=== PATIENT | female | born 1980 | race American Indian/Alaskan Native ===

== ENCOUNTER 2020-09-17 01:07 | Emergency (ER) | payer OTHER ==
[2020-09-17 02:29] VITALS: BP 102/68
[2020-09-17] MEDS ORDERED: IBUPROFEN 600 MG TAB PO ONE (02:38)
[2020-09-17] MEDS ORDERED: predniSONE 20 MG TAB PO ONE (02:38)
[2020-09-17] MEDS ORDERED: BUTALB/ACETAMINOPHEN/CAFFEINE TAB PO ONE (02:38)
[2020-09-17] MEDS ORDERED: HYDROcodone/ACETAMINOPHEN 5-325 MG TAB PO ONE (02:39)
[2020-09-17] MEDS ORDERED: ONDANSETRON 4 MG ODT TAB PO ONE (02:39)
--- NOTE | 2020-09-17 03:21 | XRay Report ---
CHEST 2 VIEWS INDICATION / CLINICAL INFORMATION: COUGH. COMPARISON: None available. FINDINGS: SUPPORT DEVICES: None. HEART / MEDIASTINUM: No significant abnormality. LUNGS / PLEURA: No significant pulmonary or pleural abnormality. No pneumothorax. ADDITIONAL FINDINGS: No significant additional findings. IMPRESSION: 1. No acute findings. Signer Name: Charan Calderon MD Signed: 09/17/2020 3:17 AM Workstation Name: [id number]
[2020-09-17 03:26] LABS: Bilirubin,Urine NEG (Negative); Blood,Urine NEG (Negative); Color,Urine Yellow (Yellow); Mucus,Urine 1+ /HPF; Protein,Urine <15 mg/dL mg/dL (Negative); Urobilinogen,Urine < 2.0 mg/dL (<2.0)
--- NOTE | 2020-09-17 04:24 | Emergency Department Report ---
ED Back Pain/Injury HPI - General Chief Complaint: Back Pain/Injury Stated Complaint: BACK PAIN,HEADACHE,PIERRE Source: patient Limitations: No Limitations - History of Present Illness Initial Comments: Patient is a 40-year-old -[place] female with no past medical history presents to the ED with complaint of acute onset persistent nontraumatic left lower back pain, bitemporal headache and persistent dry cough for the last 7 days. Patient states that the cough is dry and that each time she coughs she gets pleuritic chest pain. Patient states that she has been taking [id number] medications with no relief. Patient denies nasal and sinus congestion, dizziness, syncope, chest pain, shortness of breath, abdominal pain, nausea and vomiting, diarrhea, dysuria, urinary frequency and urgency, change in vision or sore throat. MD Complaint: back pain (Left low back pain), other (Persistent dry cough and headache) -: Sudden, week(s) (1) Similar Symptoms Previously: No Place: home Radiation: none Severity: severe Severity scale (0 -10): 7 Quality: sharp, aching Consistency: constant Improves With: none Worsens With: none, movement, walking, deep breaths/cough Context: unknown Associated Symptoms: denies other symptoms, cough. denies: confusion, weakness, chest pain, numbness, difficulty walking, difficulty urinating, diaphoresis, incontinence, fever/chills, constipation, headaches, abdominal pain, loss of appetite, malaise, nausea/vomiting, rash, seizure, shortness of breath, syncope, other Treatments Prior to Arrival: acetaminophen - Related Data Previous Rx's Medication Instructions Recorded Last Taken Type Baclofen 20 mg PO Q12H PRN #24 tablet 09/17/20 Unknown Rx Benzonatate [Tessalon Perles] 100 mg PO Q8HR #30 capsule 09/17/20 Unknown Rx Butalb/Acetamin/Caff 50-325-40 1 - 2 tab PO Q6HR PRN #15 tab 09/17/20 Unknown Rx [Fioricet 50-325-40] Naproxen 500 mg PO Q12H PRN #30 tablet 09/17/20 Unknown Rx predniSONE [Deltasone] 40 mg PO QDAY #10 tab 09/17/20 Unknown Rx Allergies Allergy/AdvReac Type Severity Reaction Status Date / Time No Known Allergies Allergy Verified 09/17/20 04:00 ED Review of Systems ROS: Stated complaint: BACK PAIN,HEADACHE,PIERRE Other details as noted in HPI Constitutional: denies: chills, fever Eyes: denies: eye pain, eye discharge, vision change ENT: other (Bitemporal headache). denies: ear pain, throat pain Respiratory: cough (Dry cough). denies: shortness of breath, wheezing Cardiovascular: denies: chest pain, palpitations Endocrine: no symptoms reported Gastrointestinal: denies: abdominal pain, nausea, diarrhea Genitourinary: denies: urgency, dysuria, discharge Musculoskeletal: back pain (Low back pain). denies: joint swelling, arthralgia Skin: denies: rash, lesions Neurological: denies: headache, weakness, paresthesias Psychiatric: denies: anxiety, depression Hematological/Lymphatic: denies: easy bleeding, easy bruising ED Past Medical Hx - Past Medical History Previous Medical History?: No - Surgical History Past Surgical History?: Yes Additional Surgical History: partial hysterectomy 2014 - Social History Smoking Status: Never Smoker Substance Use Type: None - Medications Home Medications: Home Medications Medication Instructions Recorded Confirmed Last Taken Type Baclofen 20 mg PO Q12H PRN #24 tablet 09/17/20 Unknown Rx Benzonatate [Tessalon Perles] 100 mg PO Q8HR #30 capsule 09/17/20 Unknown Rx Butalb/Acetamin/Caff 50-325-40 1 - 2 tab PO Q6HR PRN #15 tab 09/17/20 Unknown Rx [Fioricet 50-325-40] Naproxen 500 mg PO Q12H PRN #30 tablet 09/17/20 Unknown Rx predniSONE [Deltasone] 40 mg PO QDAY #10 tab 09/17/20 Unknown Rx ED Physical Exam - General Limitations: No Limitations General appearance: alert, in no apparent distress - Head Head exam: Present: atraumatic, normocephalic, normal inspection - Eye Eye exam: Present: normal appearance, PERRL, EOMI Pupils: Present: normal accommodation - ENT ENT exam: Present: normal exam, normal orophraynx, mucous membranes moist, TM's normal bilaterally, normal external ear exam - Neck Neck exam: Present: normal inspection, full ROM - Respiratory Respiratory exam: Present: normal lung sounds bilaterally. Absent: respiratory distress, wheezes, rales, rhonchi, chest wall tenderness, accessory muscle use, decreased breath sounds, prolonged expiratory - Cardiovascular Cardiovascular Exam: Present: regular rate, normal rhythm, normal heart sounds. Absent: systolic murmur, diastolic murmur, rubs, gallop - GI/Abdominal GI/Abdominal exam: Present: soft, normal bowel sounds. Absent: tenderness, guarding, rebound, hyperactive bowel sounds, hypoactive bowel sounds - Extremities Exam Extremities exam: Present: normal inspection, full ROM, normal capillary refill. Absent: tenderness, calf tenderness - Back Exam Back exam: Present: normal inspection, full ROM, tenderness (Palpable lumbosacral paraspinal musculoskeletal tenderness), muscle spasm, paraspinal tenderness. Absent: CVA tenderness (R), CVA tenderness (L), vertebral tenderness, rash noted - Neurological Exam Neurological exam: Present: alert, oriented X3, CN II-XII intact, normal gait, reflexes normal - Psychiatric Psychiatric exam: Present: normal affect, normal mood - Skin Skin exam: Present: warm, dry, intact, normal color. Absent: rash ED Course Vital Signs 09/17/20 02:21 Temperature 98.2 F Pulse Rate 77 Respiratory 18 Rate Blood Pressure 102/68 O2 Sat by Pulse 100 Oximetry ED Medical Decision Making - Radiology Data Radiology results: report reviewed, [place] [address] XRay Report Signed Patient: MARIANNE LAU MR#: [id number] : 1980 Acct:[id number] Age/Sex: 40 / F ADM Date: 09/17/20 Loc: ED Attending Dr: Ordering Physician: RENETTA GRANADOS Date of Service: 09/17/20 Procedure(s): XR chest routine 2V Accession Number(s): [id number] cc: RENETTA GRANADOS Fluoro Time In Minutes: CHEST 2 VIEWS INDICATION / CLINICAL INFORMATION: COUGH. COMPARISON: None available. FINDINGS: SUPPORT DEVICES: None. HEART / MEDIASTINUM: No significant abnormality. LUNGS / PLEURA: No significant pulmonary or pleural abnormality. No p neumothorax. ADDITIONAL FINDINGS: No significant additional findings. IMPRESSION: 1. No acute findings. Signer Name: Charan Calderon MD Signed: 09/17/2020 3:17 AM Workstation Name: [id number] Transcribed By: DT Dictated By: Willis Calderon MD Electronically Authenticated By: Willis Calderon MD Signed Date/Time: 09/17/20316 DD/ 5 TD/TT: Print Cancel - Medical Decision Making This is a 40-year-old -[place] female with no past medical history presents to the ED with complaint of acute onset persistent nontraumatic left lower back pain, bitemporal headache and persistent dry cough for the last 7 days. Patient states that the cough is dry and that each time she coughs she gets pleuritic chest pain. Patient states that she has been taking [id number] medications with no relief. In the ED, patient is alert and oriented x3 and is not in any distress, vital signs are stable. Urinalysis and is unremarkable. Chest x-ray shows no acute cardiopulmonary abnormalities or pneumonitis. Patient treated for pain in the ED. On reevaluation, patient's headache and low back pain is well controlled with medications. On reevaluation, patient is alert and oriented x3, neurologically intact, ambulatory in the ED with no difficulty and is hemodynamically stable. Patient was therefore discharged home on medications and advised to follow-up with her primary care physician in 5 to 7 days for reevaluation or return to the ED immediately if symptoms get worse. - Differential Diagnosis Muscle spasm; muscle strain; tension headache; UTI Critical care attestation.: If time is entered above; I have spent that time in minutes in the direct care of this critically ill patient, excluding procedure time. ED Disposition Clinical Impression: Spasm of muscle of lower back Acute tension-type headache Qualifiers: Intractability: not intractable Qualified Code(s): G44.209 - Tension-type headache, unspecified, not intractable Acute bronchitis Qualifiers: Bronchitis organism: unspecified organism Qualified Code(s): J20.9 - Acute bronchitis, unspecified Disposition: - TO HOME OR SELFCARE Is pt being admited?: No Does the pt Need Aspirin: No Condition: Stable Instructions: Acute Bronchitis (ED), Muscle Cramps and Spasms, [id number], Tension Headache, Adult, [id number], Acute Bronchitis, Adult, [id number] Additional Instructions: Chest x-ray shows no acute cardiopulmonary abnormalities or pneumonitis. Urinalysis is unremarkable. Your symptoms are likely due to muscle spasm of your low back, and the headache is likely due to tension headache which may be related to stress or anxiety. Therefore take medications with food, drink plenty of fluids and follow-up with your primary care physician in 7 to 10 days for reevaluation. Return to the ED immediately if symptoms get worse. Prescriptions: Baclofen 20 mg PO Q12H PRN #24 tablet PRN Reason: Muscle Spasm predniSONE [Deltasone] 40 mg PO QDAY #10 tab Butalb/Acetamin/Caff 50-325-40 [Fioricet 50-325-40] 1 - 2 tab PO Q6HR PRN #15 tab PRN Reason: Headache Naproxen 500 mg PO Q12H PRN #30 tablet PRN Reason: Pain , Severe (7-10) Benzonatate [Tessalon Perles] 100 mg PO Q8HR #30 capsule Referrals: [facility] [Provider Group] - 3-5 Days Forms: Work/School Release Form(ED) Time of Disposition: 04:31 Print Language: CANADIAN
== END 2020-09-17 04:51 | disposition home or self-care (01) ==
LOC: ED 01:07
DX: G44.209 Tension-type headache, unspecified, not intractable (principal); J20.9 Acute bronchitis, unspecified; M62.830 Muscle spasm of back
CPT/HCPCS: 71046; 81001; 99284; J7512; Q0162